=== PATIENT | female | born 2000 | race Two or more races ===

== ENCOUNTER 2024-11-21 21:55 | Emergency (ER) | payer MEDICAID, SELFPAY ==
[2024-11-21 21:57] VITALS: BMI 22.2
--- NOTE | 2024-11-21 21:59 | EKG_ITS ---
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
[2024-11-21 22:16] VITALS: BP 122/73; PULSE 70; RESP 18; TEMP 36.9; O2SAT 99
[2024-11-21 23:07] LABS: Basophils # (Auto) 0.1 Thou/mm3 (0.0-0.2); Basophils % (Auto) 1 % (0-2.5); Eosinophils # (Auto) 0.1 Thou/mm3 (0.0-0.5); Eosinophils % (Auto) 2 % (0-10); Hematocrit 39.9 % (36.0-46.0); Hemoglobin 13.7 g/dL (12.0-16.0); Immature Granulocytes % (Auto) 0 % (0-0); Immature Granulocytes Auto 0.01 Thou/mm3 (0.00-0.00); Lymphocytes # (Auto) 2.8 Thou/mm3 (1.0-4.8); Lymphocytes % (Auto) 41 % (10-50); Mean Corpuscular HGB Conc 34.3 g/dl (31.0-37.0); Mean Corpuscular Hemoglobin 27.9 pg (25.0-35.0); Mean Corpuscular Volume 81 fL (80-100); Monocytes # (Auto) 0.6 Thou/mm3 (0.0-0.8); Monocytes % (Auto) 9 % (0-12); Neutrophils # (Auto) 3.3 Thou/mm3 (1.8-7.7); Neutrophils % (Auto) 48 % (37-80); Nucleated Red Blood Cell % 0 /100 WBC (0); Platelet Count 300 Thou/mm3 (140-440); RDW Standard Deviation 39.1 fL (36.4-46.3); Red Blood Count 4.91 Miln/mm3 (4.00-5.20); White Blood Count 6.9 Thou/mm3 (3.6-11.0)
--- NOTE | 2024-11-21 23:30 | PC.NURSE ---
PATIENT HAD ASKED THIS NURSE THE LOCATION OF MEDICAL RECORDS APPROXIMATELY 10 MINUTES PRIOR TO THIS NOTE. THIS NURSE CALLED PATIENT IN THE LOBBY AND OUTSIDE, NO ANSWER RECEIVED.
[2024-11-21 23:33] LABS: Collection Type, Urine Catheter; Squamous Epithelial Cell,Urine 0 /hpf (0-5); WBC,Urine 0 /hpf (0-5)
--- NOTE | 2024-11-21 23:33 | PD.EDRME ---
Rapid Medical Screening Exam RME Arrival date/time: 11/21/24 21:55 24F with no significant PMH presents to ED with weakness while working in the [employer]. Patient went home and drank 2 large beers to try and make it better, which is when she got CP. Chief Complaint: Chest Pain Time Seen by Provider: 11/21/24 22:23 Vital signs: Vital Signs Temperature 98.5 F 11/21/24 22:16 Pulse Rate 70 11/21/24 22:16 Respiratory Rate 18 11/21/24 22:16 Blood Pressure 122/73 11/21/24 22:16 Pulse Oximetry (%) 99 11/21/24 22:16 Oxygen Delivery Method Room Air 11/21/24 22:16
[2024-11-21 23:37] LABS: Alanine Aminotransferase 14 U/L (10-49); Albumin, Serum 4.7 gm/dL (3.5-5.0); Albumin/Globulin Ratio 1.3 (1.2-2.2); Alcohol, Blood Medical 188.3 mg/dL (0-10.0); Alkaline Phosphatase 97 U/L (46-116); Anion Gap 11 (7-16); Aspartate Amino Transferase 17 U/L (0-34); BUN/Creatinine Ratio 9 Ratio (12-20); Bilirubin,Total 0.5 mg/dL (0.3-1.2); Blood Urea Nitrogen 6 mg/dL (9-23); Calcium 9.7 mg/dL (8.3-10.6); Calcium (Corrected) 9.7 mg/dL (8.5-10.1); Carbon Dioxide 22.2 mMol/L (20.0-31.0); Chloride 110 mMol/L (98-107); Creatinine (Component) 0.7 mg/dL (0.6-1.3); Estimated Creatinine Clearance 90.5 mL/min (>60); Globulin 3.5 gm/dL (2.3-3.5); Glucose 87 mg/dL (74-106); Osmolality,Calculated 281 (275-295); Potassium 3.5 mMol/L (3.4-5.1); Sodium 143 mMol/L (136-145); Total Protein 8.2 gm/dL (5.7-8.2); eGFR > 60 See Note
[2024-11-21 23:39] LABS: Bilirubin,Urine Negative (Negative); Blood,Urine Negative (Negative); Clarity,Urine Clear (Clear/Hazy); Color,Urine Colorless (Lt Yel-Yel); Culture Indicated,Urine Not Indicated; Glucose, Urine Negative (Negative); Ketones,Urine Negative (Negative); Leukocyte Esterase,Urine Negative (Negative); Nitrite,Urine Negative (Negative); PH,Urine 5.5 (5.0-7.0); Protein,Urine Negative (Neg - Trace); RBC,Urine < 1 /hpf (0-3); Specific Gravity,Urine 1.002 (1.001-1.035); Urobilinogen,Urine Negative mg/dL (0.0-1.0)
[2024-11-21 23:45] LABS: HCG Qualitative,Urine Negative
--- NOTE | 2024-11-21 23:51 | PC.NURSE ---
CALLED PATIENT IN THE LOBBY AND OUTSIDE, NO ANSWER RECEIVED.
--- NOTE | 2024-11-21 23:54 | PD.EDADDENDU ---
Emergency Room Addendum Addendum Narrative: Patient eloped before I saw the patient. Luciano Portillo MD
[2024-11-22 00:24] LABS: Amphetamine/Methamp Scrn,U Negative (Negative); Barbiturate Screen,Urine Negative (Negative); Benzodiazepines Screen,Urine Negative (Negative); Benzoylecgonine Screen, Ur Negative (Negative); Fentanyl Screen,Urine Negative (Negative); Opiate Screen,Urine Negative (Negative); THC Screen,Urine Negative (Negative)
== END 2024-11-22 00:07 | disposition left against medical advice (07) ==
LOC: SERX 22:29
PROVIDERS: Physician Assistant; Emergency Provider Emergency Medicine
DX: R07.9 Chest pain, unspecified (principal); R53.1 Weakness; R94.31 Abnormal electrocardiogram [ECG] [EKG]; Z53.29 Procedure and treatment not carried out because of patient's decision for other reasons
CPT/HCPCS: 36415; 80053; 80307; 80320; 81001; 81025; 85025; 93005; 99281; G0480